=== PATIENT | female | born 1950 | race Caucasian/White ===

== ENCOUNTER 2023-04-26 12:27 | Inpatient (IN) | payer OTHER, MEDICARE ==
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
--- NOTE | 2023-04-26 13:16 | XR ---
EXAMINATION TYPE: XR chest 1V portable DATE OF EXAM: 04/26/2023 COMPARISON: NONE HISTORY: Pain TECHNIQUE: Single frontal view of the chest is obtained. FINDINGS: There is no focal air space opacity, pleural effusion, or pneumothorax seen. The cardiac silhouette size is within normal limits. The osseous structures are intact. Diffuse osteopenia with arthropathy of the shoulders. Hypertrophic degenerative change of the spine. IMPRESSION: No acute process.
--- NOTE | 2023-04-26 13:18 | XR ---
EXAMINATION TYPE: XR pelvis AP view DATE OF EXAM: 04/26/2023 COMPARISON: NONE HISTORY: Pain The osseous structures are intact and the joint spaces are preserved. No acute fracture is seen. Vi sualized bowel gas pattern is nonspecific. Phleboliths in the pelvis noted. Bilateral mild hypertrop hic hip arthropathy. Diffuse osteopenia. Vascular calcifications. IMPRESSION: 1. No acute fracture.
[2023-04-26 13:19] LABS: Glucose,Whole Blood 114 mg/dL (70-110)
[2023-04-26 13:27] LABS: Basophils % (A) 0 %; Eosinophils # (A) 0.1 k/uL (0-0.7); Eosinophils % (A) 1 %; HCT 44.4 % (34.0-46.0); HGB 15.3 gm/dL (11.4-16.0); Lymphocytes % (A) 7 %; MCH 32.4 pg (25.0-35.0); MCHC 34.5 g/dL (31.0-37.0); Mean Platelet Volume 8.1; Monocytes # (A) 0.4 k/uL (0-1.0); Monocytes % (A) 3 %; Neutrophils # (A) 12.2 k/uL (1.3-7.7); Neutrophils % (A) 88 %; Platelet Count 192 k/uL (150-450); RBC 4.72 m/uL (3.80-5.40); RDW 12.6 % (11.5-15.5); WBC 13.8 k/uL (3.8-10.6)
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
[2023-04-26 13:41] LABS: INR 0.9 (<1.2); Prothrombin Time 10.3 sec (10.0-12.5)
[2023-04-26 13:52] LABS: ALT 22 U/L (4-34); AST 35 U/L (14-36); African American GFR (CKD) >90 (>60 ml/min/1.73 sqM); Albumin 4.5 g/dL (3.5-5.0); Alcohol <10 mg/dL; Alkaline Phosphatase 60 U/L (38-126); Anion Gap 10 mmol/L; Blood Urea Nitrogen 17 mg/dL (7-17); Calcium 9.9 mg/dL (8.4-10.2); Carbon Dioxide 24 mmol/L (22-30); Chloride 98 mmol/L (98-107); Glucose 103 mg/dL (74-99); Non-African American GFR(CKD) >90 (>60 ml/min/1.73 sqM); Potassium 4.2 mmol/L (3.5-5.1); Sodium 132 mmol/L (137-145); Total Bilirubin 0.5 mg/dL (0.2-1.3); Total Protein 7.1 g/dL (6.3-8.2)
[2023-04-26] MEDS ORDERED: MORPHINE SULFATE 4 MG/ML SYRINGE IV PRN (14:50)
[2023-04-26] MEDS ORDERED: NALOXONE 0.4 MG/ML 1 ML VIAL IV PRN (14:50)
[2023-04-26] MEDS ORDERED: HYDROmorphone 0.5 MG/0.5 ML SYRINGE IVP PRN (14:50)
[2023-04-26] MEDS ORDERED: ONDANSETRON 4 MG/2 ML VIAL IVP PRN (14:50)
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
[2023-04-26] MEDS: SODIUM CHLORIDE 0.9% 1,000 ML IV SCH (15:42)
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
--- NOTE | 2023-04-26 19:17 | MR ---
EXAMINATION TYPE: MR cervical spine wo/w con DATE OF EXAM: 04/26/2023 COMPARISON: CT 04/26/2023 HISTORY: 73-year-old female C-spine fracture Technique: Multiplanar, multisequence images of the cervical spine were obtained before and after adm inistration of 5 mL intravenous Gadavist gadolinium contrast. FINDINGS: No craniocervical junction abnormality or predental space widening. There is prevertebral soft tissue edema spanning from C2 down to the C5 level. In addition, there is prominent soft tissue edema about the intraspinous and supraspinous ligaments a s well as the posterior paravertebral musculature from C1 down through the C7 level. There is moderately advanced degenerative disc disease mid to lower cervical spine with disc osteophy te complexes. Additional ligamentum flavum thickening injury to moderate spinal canal stenosis C4-C5 and C5-C6. Mild elsewhere throughout the mid to lower cervical spine. No nondisplaced fracture involving the C4 spinous process. Not well depicted by MRI. Known fracture involving the left-sided posterior elements C7 including the lamina, inferior facet, p ars interarticularis region also not well depicted by MRI. Alignment is preserved. Known fracture involving the left lateral margin of the C7 vertebral body and through the base of the transverse process also not well depicted by MRI. No sizable epidural hematoma is evident. No T2-weighted cord signal abnormality is identified. There is variable moderate bilateral neuroforaminal stenoses particularly C3-C4, C4-C5, C5-C6. No abnormal enhancement within the spinal canal. Extensive heterogeneous marrow signal likely product of red marrow hyperplasia. IMPRESSION: 1. Ligamentous injury with prevertebral soft tissue swelling extending from C2 down through C5. 2. Additional ligamentous injury and soft tissue swelling involving the interspinous and supraspinous ligaments as well as the posterior paravertebral musculature from C1 down through the C7 level. 3. The known fractures involving the C4 spinous process, left sided C7 posterior elements, left later al margin of the C7 vertebral body, and base of the left C7 transverse process are not well depicted by MRI. No sizable epidural hematoma is appreciated. 4. Spondylotic change contribute to moderate spinal canal stenoses at C4-C5 and C5-C6. There are mode rate bilateral neuroforaminal stenosis C3-C6 levels.
[2023-04-26] MEDS: ACETAMINOPHEN TAB 325 MG TAB PO PRN (22:20)
[2023-04-26] MEDS: FAMOTIDINE 20 MG TAB PO SCH (22:20)
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
[2023-04-27] MEDS: ACETAMINOPHEN TAB 325 MG TAB PO PRN ×4 (03:45→20:20)
[2023-04-27] MEDS: SODIUM CHLORIDE 0.9% 1,000 ML IV SCH ×2 (05:04→20:22)
[2023-04-27 06:12] LABS: HCT 40.7 % (34.0-46.0); HGB 13.8 gm/dL (11.4-16.0); MCH 32.2 pg (25.0-35.0); MCHC 33.9 g/dL (31.0-37.0); MCV 94.8 fL (80.0-100.0); Mean Platelet Volume 8.2; Platelet Count 201 k/uL (150-450); RBC 4.29 m/uL (3.80-5.40); RDW 12.5 % (11.5-15.5); WBC 8.5 k/uL (3.8-10.6)
[2023-04-27 07:13] LABS: African American GFR (CKD) >90 (>60 ml/min/1.73 sqM); Anion Gap 9 mmol/L; Blood Urea Nitrogen 11 mg/dL (7-17); Calcium 9.5 mg/dL (8.4-10.2); Carbon Dioxide 21 mmol/L (22-30); Chloride 100 mmol/L (98-107); Glucose 98 mg/dL (74-99); Non-African American GFR(CKD) >90 (>60 ml/min/1.73 sqM); Potassium 4.3 mmol/L (3.5-5.1); Sodium 130 mmol/L (137-145)
[2023-04-27] MEDS: FAMOTIDINE 20 MG TAB PO SCH ×2 (08:35→21:34)
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
--- NOTE | 2023-04-27 10:24 | XR ---
EXAMINATION TYPE: XR cervical spine limited DATE OF EXAM: 04/27/2023 COMPARISON: NONE HISTORY: Pain TECHNIQUE: Three views are submitted. FINDINGS: The odontoid is intact. There are no compression deformities. The prevertebral soft tissue structur es are within normal limits. Multilevel moderate to severe degenerative disc disease level C4-C7 wit h posterior spondylosis. 2 to 3 mm retrolisthesis of C3-4 and C4-5. Multilevel mild facet arthropathy . Calcifications in the soft tissue of the neck likely vascular. Apices are clear. There is a vague 7 mm nodule in the right upper lobe recommend dedicated x-ray of the chest. IMPRESSION: 1. Multilevel severe degenerative disc disease with posterior spondylosis and retrolisthesis. Suspect possible canal stenosis recommend MRI. 2. 7 mm right upper lobe pulmonary nodule recommend chest x-ray..
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
[2023-04-27 18:51] LABS: Amphetamine Screen,Urine Not Detected (NotDetected); Barbiturate Screen,Urine Not Detected (NotDetected); Benzodiazepines Screen,Urine Not Detected (NotDetected); Cocaine Screen,Urine Not Detected (NotDetected); Methadone Screen, Urine Not Detected (NotDetected); Opiate Screen,Urine Not Detected (NotDetected); Oxycodone Screen, Urine Not Detected (NotDetected); Phencyclidine Screen,Urine Not Detected (NotDetected); Tricyclic Antidepressant,Urine Not Detected (NotDetected); Urn Cannabinoid Scrn Not Detected (NotDetected)
[2023-04-28 08:23] VITALS: BP 144/74; PULSE 68; RESP 18; TEMP 98.5
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
[2023-04-28] MEDS: FAMOTIDINE 20 MG TAB PO SCH (09:49)
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
[2023-04-28] MEDS: ACETAMINOPHEN TAB 325 MG TAB PO PRN (10:57)
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
== END 2023-04-28 12:50 | disposition home or self-care (01) | DRG 552 ==
LOC: EC 12:27 → 5NMEDONC 14:50
PROVIDERS: ADMIT Orthopaedic Surgery Orthopaedic Surgery of the Spine; ATTEND Orthopaedic Surgery Orthopaedic Surgery of the Spine
DX: S12.600A Unspecified displaced fracture of seventh cervical vertebra, initial encounter for closed fracture (principal); E22.2 Syndrome of inappropriate secretion of antidiuretic hormone; S00.81XA Abrasion of other part of head, initial encounter; G89.29 Other chronic pain; V58.5XXA Driver of pick-up truck or van injured in noncollision transport accident in traffic accident, initial encounter; Y92.410 Unspecified street and highway as the place of occurrence of the external cause
CPT/HCPCS: 36415; 70450; 71045; 71250; 72040; 72125; 72156; 72170; 74176; 80048; 80053; 80306; 80320; 85025; 85027; 85610; 85730; 86850; 86900; 86901; 96360; 99285